=== PATIENT | female | born 1945 | race Caucasian/White ===

== ENCOUNTER 2019-08-25 14:07 | Outpatient (CLI) | payer MEDICARE, SELFPAY ==
--- NOTE | ~2019-08-25 | MM_ITS ---
EXAMINATION: MM screening [facility] BI w hilda HISTORY: Screening mammogram TECHNIQUE: Craniocaudal and mediolateral oblique 3-D tomosynthesis images were obtained and synthetic 2-D images were generated. CAD analysis was submitted and interpreted. COMPARISON: 06/04/2018, 05/27/2017, 04/08/2016 bilateral digital screening mammogram examinations BREAST PARENCHYMAL COMPOSITION: There are scattered areas of fibroglandular density. FINDINGS: Occasional benign calcifications. There is no evidence of suspicious mass, calcification, o r architectural distortion to suggest malignancy in either breast. There has been no suspicious inter lo change. IMPRESSION: 1. No mammographic evidence of malignancy. 2. Recommend routine screening mammography in one year. BI-RADS Category 2: Benign finding(s). Reviewed, dictated and finalized at location A.
== END 2019-08-25 14:08 | disposition home or self-care (01) ==
LOC: ANHIMG 14:12
PROVIDERS: PCP Family Medicine; Visit Provider Family Medicine
DX: Z12.31 Encounter for screening mammogram for malignant neoplasm of breast (principal)
CPT/HCPCS: 77063; 77067

== ENCOUNTER 2020-09-04 14:54 | Outpatient (CLI) | payer MEDICARE, SELFPAY ==
--- NOTE | ~2020-09-04 | MM_ITS ---
EXAMINATION: MM screening [facility] BI w hilda HISTORY: Screening mammogram TECHNIQUE: Craniocaudal and mediolateral oblique 3-D tomosynthesis images were obtained and synthetic 2-D images were generated. CAD analysis was submitted and interpreted. COMPARISON: 08/25/2019, 06/04/2018, 05/27/2017 BREAST PARENCHYMAL COMPOSITION: There are scattered areas of fibroglandular density. FINDINGS: There is no evidence of suspicious mass, calcification, or architectural distortion to sugg est malignancy in either breast. There has been no suspicious interval change. IMPRESSION: 1. No mammographic evidence of malignancy. 2. Recommend routine screening mammography in one year. BI-RADS Category 1: Negative Reviewed, dictated and finalized at location A.
== END 2020-09-04 14:55 | disposition home or self-care (01) ==
LOC: ANHIMG 14:58
PROVIDERS: PCP Family Medicine; Visit Provider Family Medicine
DX: Z12.31 Encounter for screening mammogram for malignant neoplasm of breast (principal)
CPT/HCPCS: 77063; 77067

== ENCOUNTER 2021-12-25 12:52 | Outpatient (CLI) | payer MEDICARE, SELFPAY ==
--- NOTE | ~2021-12-25 | DEXA_ITS ---
Bone Density Report Name: ASPEN RODRIGUEZ Age: 76 Sex: Female Ethnicity: White Date of : 1945 Indication: postmenopausal; screening for osteoporosis; height loss; hysterectomy; Referring Provider: KIMBERLEY EID Study: Bone densitometry was performed. Exam Date: December 25, 2021 Accession number: [id number] Bone Density: Region BMD T-score Z-score Classification AP Spine(L1, L2, L3) 1.085 0.6 2.9 Normal Femoral Neck (Left) 0.700 -1.3 0.7 Osteopenia Total Hip (Left) 0.794 -1.2 0.5 Osteopenia Femoral Neck (Right) 0.679 -1.5 0.5 Osteopenia Total Hip (Right) 0.817 -1.0 0.7 Normal Total Hip Mean 0.805 -1.1 0.6 Osteopenia World Health Organization criteria for BMD impression classify patients as: Normal (T-score at or above -1.0), Osteopenia (T-score between -1.0 and -2.5), or Osteoporosis (T-score at or below -2.5). 10-year Fracture Risk(1): Major Osteoporotic Fracture 11% Hip Fracture 2.1% Reported Risk Factors: [place] (), Neck BMD=0.679, BMI=23.5 (1) FRAX(R) Version 3.08. Fracture probability calculated for an untreated patient. Fracture probability may be lower if the patient has received treatment. Previous Exams: Region Exam Age BMD T-score BMD Change BMD Change Date g/cm2 vs Baseline vs Previous AP Spine (L1-L3) 12/25/2021 76 1.085 0.6 0.077 (7.6%)* 0.077 (7.6%)* 07/16/2016 70 1.009 -0.1 Total Hip(Left) 12/25/2021 76 0.794 -1.2 -0.056 (-6.6%) -0.056 (-6.6%) 07/16/2016 70 0.850 -0.8 Total Hip(Right) 12/25/2021 76 0.817 -1.0 -0.010 (-1.2%) -0.010 (-1.2%) 07/16/2016 70 0.827 -0.9 *Denotes significance at 95% confidence level, LSC for AP Spine = 0.022 g/cm2, LSC for Total Hip = 0.027 g/cm2 Clinical Information Provided by Patient: Has used the following medications: Vitamin D, Calcium Has the following medical conditions: Hysterectomy Patient maximum height was 65 Menopause Age: 57 Onset of menses at age 13 Number of children 2 Impression: The patient has low bone mass, based on the Right Femoral Neck T-score. The patient has an estimated ten-year risk of hip fracture of 2.1% and an estimated ten-year risk of major fracture of 11%, based on the WHO FRAX algorithm. The BMD for the Total Hip(Left) decreased, changing by -6.6% since the last DXA exam. Discussion: BONE DENSITY IS LOW AT ONE OR MORE SKELETAL SITES. This patient's lowest T-score is low at one or more skelet
== END 2021-12-25 12:53 | disposition home or self-care (01) ==
PROVIDERS: PCP Family Medicine; Visit Provider Family Medicine
DX: Z78.0 Asymptomatic menopausal state (principal); M85.852 Other specified disorders of bone density and structure, left thigh; M85.851 Other specified disorders of bone density and structure, right thigh
CPT/HCPCS: 77080

== ENCOUNTER 2022-10-30 15:29 | Outpatient (CLI) | payer MEDICARE, SELFPAY ==
--- NOTE | ~2022-10-30 | MM_ITS ---
EXAMINATION: MM screening [facility] BI w hilda HISTORY: Screening mammogram TECHNIQUE: Craniocaudal and mediolateral oblique 3-D tomosynthesis images were obtained and synthetic 2-D images were generated. CAD analysis was submitted and interpreted. COMPARISON: 09/04/2020, 08/25/2019, 06/04/2018 BREAST PARENCHYMAL COMPOSITION: There are scattered areas of fibroglandular density. FINDINGS: No suspicious mass, calcification, or architectural distortion are identified in either joanne ast to suggest malignancy. There has been no suspicious interval change. IMPRESSION: 1. No mammographic evidence of malignancy. 2. Recommend routine screening mammography in one year. BI-RADS Category 1: Negative Reviewed, dictated and finalized at location A.
== END 2022-10-30 15:30 | disposition home or self-care (01) ==
LOC: ANHIMG 15:44
PROVIDERS: PCP Family Medicine; Visit Provider Family Medicine
DX: Z12.31 Encounter for screening mammogram for malignant neoplasm of breast (principal)
CPT/HCPCS: 77063; 77067

== ENCOUNTER 2024-02-04 13:55 | Outpatient (CLI) | payer MEDICARE, SELFPAY ==
--- NOTE | ~2024-02-04 | US_ITS ---
EXAMINATION: US soft tissue head and neck DATE: 02/04/2024 14:47 INDICATION: Localized swelling, mass and lump, neck. TECHNIQUE: Multiple grayscale and Doppler ultrasound images of the neck were obtained. COMPARISON: None FINDINGS: In the right neck, there is a 3.1 x 4.6 x 3.4 cm internal jugular ingris mass. IMPRESSION: 1. Right internal jugular lymphadenopathy, consistent with metastatic disease versus lymphoma. Ultras ound-guided core needle biopsy is recommended. Reviewed, dictated and finalized at location A. AGENT IMPRESSION: 1. Right internal jugular lymphadenopathy, consistent with metastatic disease v ersus lymphoma. Ultrasound-guided core needle biopsy is recommended.
== END 2024-02-04 13:56 | disposition home or self-care (01) ==
PROVIDERS: PCP Family Medicine; Visit Provider Physician Assistant
DX: R22.1 Localized swelling, mass and lump, neck (principal)
CPT/HCPCS: 76536

== ENCOUNTER 2024-02-17 09:52 | Outpatient (CLI) | payer MEDICARE, SELFPAY ==
--- NOTE | 2024-02-11 16:15 | PC.NURSE ---
Pre Radiology instructions Report to the outpatient mariajose bowen on date __02/17/24___ at time __10:00am for procedure Time: _10:30am___ YOU MAY BE MONITORED AT HOSPITAL FOR UP TO 4 HOURS AFTER YOUR PROCEDURE. A visitor will be allowed to accompany the patient into the hospital. You and your visitor will be asked to self-screen and do not enter if you have any COVID symptoms. A mask is OPTIONAL within the hospital. Patients are to have no food or drink 6 hours prior to procedure time Driving will be restricted after the procedure, you must have a person to drive you home. Labs will be drawn in preop area and once reviewed, you will be taken to radiology area for procedure. When the procedure is completed, you will be taken to outpatient where you will be monitored for several hours. You may have one visitor in this area. Other than holding anti-coagulants, patient may take other medication(s) as scheduled. Prior to your appointment date patients are instructed to hold anti-coagulants after discussing with ordering provider to stop. If unable to discontinue anti-coagulants please notify radiologist. ? No aspirin or warfarin (Coumadin) for 7 days prior to the procedure. ? No clopidogrel (Plavix), ticagrelor (Brilinta), prasugrel (Effient) or dabigatran (Pradaxa) for 5 days prior to the procedure. ? No rivaroxaban (Xarelto), apixaban (Eliquis), dipyridamole (Aggrenox or Persantine) or cilostazol (Pletal) for 2 days prior to the procedure. Medications to discontinue per physician: ___hold aspirin 7 days pre-op Date to take last dose: 02/09/24 Please leave all valuables, including medications, at home the day of procedure. The hospital will not accept responsibility for valuables. Wear comfortable, loose fitting clothing.? Follow any additional instructions given to you from ordering provider. Telephone instructions given to ____patient and asked if any additional questions and then verbalized understanding. Patient advised to call scheduling provider office or registration scheduling [phone] if any additional questions.
[2024-02-11 16:17] VITALS: BMI 23.1
--- NOTE | ~2024-02-17 | US_ITS ---
EXAMINATION: US biopsy lymph node DATE: 02/17/2024 11:30 INDICATION: Right internal jugular lymphadenopathy TECHNIQUE: The procedure including the risks and benefits was discussed with the patient. Risks discu ssed included bleeding and infection. The patient understood the risks and agreed to proceed. The sk in overlying the previously noted enlarged inferior left jugular chain lymph node was prepped and chely ped in usual sterile fashion. Anesthetic was administered with 1% lidocaine subcutaneously. An 18 g auge core biopsy needle was advanced under continuous ultrasound observation to the lesion of interes t. 8 core biopsy specimens were obtained, 5 placed in RPMI media and 3 formalin. The needle was rem sam and the entry site was cleaned and dressed. Post procedure ultrasound demonstrated no hemorrhag e. FINDINGS: Ultrasound images demonstrate a 4.1 x 3.1 x 3.1 cm lobular mass, likely an enlarged lymph n ode along the right jugular chain. Subsequent images demonstrate the biopsy needles advanced into the mass.. IMPRESSION: 1. Successful Ultrasound-guided biopsy of a 4.1 x 3.1 x 3.1 cm large right internal jugular chain lym ph node suspicious for metastatic disease or lymphoma. Reviewed, dictated and finalized at location A. TS COORDINATOR IMPRESSION: 1. Successful Ultrasound-guided biopsy of a 4.1 x 3.1 x 3.1 cm large right inte rnal jugular chain lymph node suspicious for metastatic disease or lymphoma.
== END 2024-02-17 09:53 | disposition home or self-care (01) ==
LOC: ANHIMG 09:56
PROVIDERS: PCP Family Medicine; Visit Provider Physician Assistant
DX: R93.89 Abnormal findings on diagnostic imaging of other specified body structures (principal)
CPT/HCPCS: 38505; 76942; 88184; 88305; 88342

== ENCOUNTER 2025-01-07 14:06 | Outpatient (CLI) | payer MEDICARE, SELFPAY ==
--- NOTE | ~2025-01-07 | DEXA_ITS ---
Bone Density Report Name: ASPEN RODRIGUEZ Age: 79 Sex: Female Ethnicity: White Date of : 1945 Indication: osteopenia; monitoring treatment; parental hip fracture; cancer; hysterectomy; Referring Provider: ALLIE ROSE Study: Bone densitometry was performed. Exam Date: January 07, 2025 Accession number: [id number] Bone Density: Region BMD T-score Z-score Classification AP Spine(L2, L3, L4) 1.267 1.7 4.3 Normal Femoral Neck (Left) 0.657 -1.7 0.4 Osteopenia Total Hip (Left) 0.822 -1.0 0.9 Normal Femoral Neck (Right) 0.655 -1.7 0.4 Osteopenia Total Hip (Right) 0.915 -0.2 1.7 Normal Total Hip Mean 0.869 -0.6 1.3 Normal World Health Organization criteria for BMD impression classify patients as: Normal (T-score at or above -1.0), Osteopenia (T-score between -1.0 and -2.5), or Osteoporosis (T-score at or below -2.5). 10-year Fracture Risk: FRAX not reported because: Treated for osteoporosis Previous Exams: Region Exam Age BMD T-score BMD Change BMD Change Date g/cm2 vs Baseline vs Previous Total Hip(Left) 01/07/2025 79 0.822 -1.0 -0.028 (-3.2%) 0.029 (3.6%)* 12/25/2021 76 0.794 -1.2 -0.056 (-6.6%) -0.056 (-6.6%) 07/16/2016 70 0.850 -0.8 Total Hip(Right) 01/07/2025 79 0.915 -0.2 0.088 (10.7%)* 0.098 (12.1%)* 12/25/2021 76 0.817 -1.0 -0.010 (-1.2%) -0.010 (-1.2%) 07/16/2016 70 0.827 -0.9 *Denotes significance at 95% confidence level, LSC for Total Hip = 0.027 g/cm2 Clinical Information Provided by Patient: Parent has had a hip fracture Is being treated for osteoporosis Has used the following medications: Vitamin D, Calcium Has the following medical conditions: Cancer, Hysterectomy Patient maximum height was 65 Menopause Age: 57 Drinks caffeinated beverages Onset of menses at age 13 Number of children 2 Missed period for more than 6 months in a row Impression: The patient has low bone mass, based on the Left Femoral Neck T-score. The patient has risk factors, including: parental hip fracture. No significant bone loss was observed. Discussion: PATIENT UNDER TREATMENT WITH NO SIGNIFICANT BMD LOSS SINCE LAST EXAM. In an untreated patient, BMD typically declines with age. A lack of decline or gain is usually a sign that treatment is efficacious and fracture risk is reduced. It is important to ask patients whether they are taking their medications and to encourage continued and appropriate compliance with their osteoporosis therapies to reduce fracture risk. It is also important to review their risk factors and encourage appropriate calcium and vitamin D intakes, exercise, fall prevention and other lifestyle measures. Follow-Up: Consider a repeat BMD and Vertebral Fracture Assessment (VFA) exam in 2 years or sooner if medically necessary, to reassess this patient's status. Reported by: JARED on 01/07/2025 2:53:00 PM. Reviewed, dictated and finalized at location A.
--- OUTSIDE RECORDS SUMMARY | 2025-01-07 14:10 | XMS_ITS | Encounter Summary ---
Author Organization [facility] Address [address] [place] [address] Phone Care Team Providers Care Crutching Contractor Name Role Phone Foster Callahan Unavailable [phone] OppeAnders ruano MD Unavailable [phone] Kevin Willams MD Primary Care Provider Encounter Details Date Type Department Care Team (Late st Contact Info) Description 12/27/2024 Results Follow-Up [facility] Medicine Endocrinology Metabolism and Lipid [address] [facility] [address], [address] [place] [address] Oseas Kitchen MD [address] [address] Head Neck Soft Tissue Social History Tobacco Use Types Packs/Day Years Used Date Smoking Tobacco: Never Smokeless Tobacco: Never AUDIT-C Answer Date Recorded Q1: How often do you have a drink containing alcohol? Never 05/28/2024 Q2: How many drinks containi ng alcohol do you have on a typical day when you are drinking? Patient does not drink Q3: How often do you have si x or more drinks on one occasion? Never 05/28/2024 Personal Safety Answer Date Recorded Have you ever been in or are you currently in a harmful physical or emotional relationship or is someone making you feel afraid or unsafe? 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 Gender Identity Not on file Sexual Orientation Not on file documented as of this encounter Plan of Treatment Not on file documented as of this encounter Visit Diagnoses Not on filedocumented in this encounter Care Teams Crutching Contractor Relationship Specialty Start Date End Date Kevin Willams MD [address] [place] [address] [place] [address] PCP - General Family Medicine 05/18/24 Foster Callahan PA [address] [place] [address] [place] [address] Physician Production Operations Manager 02/25/24 Anders Ball MD [address] [facility] [address] [place] [address] Medical Oncologist/Building Admin Medical Oncology 02/25/24 documented as of this encounter
--- OUTSIDE RECORDS SUMMARY | 2025-01-07 14:10 | XMS_ITS ---
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 TSH goal suppression Assessment & Plan (11/09/2024 1:02 PM CDT): Continue current levothyroxine dose. Will check thyroid function test and adjust levothyroxine dose accordingly. 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 I will request sampling of the largest lymph node with TG washout. I will also repeat biochemical evaluation when she is here for the biopsy. I will discuss with the nuclear Medicine and Dr. Fan regarding best next step regarding repeat radioactive iodine dose versus neck dissection pending biopsy results. Surveillance remain an option to patient. 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 Patient currently on levothyroxine 100 mcg daily. TSH goal is suppression. We will obtain biochemical testing to check thyroid function tests then tumor markers. She is scheduled for neck ultrasound in December this year followed by follow-up with Dr. Fan later this year. I will plan to see her and coordinate around that time. Assessment & Plan (05/05/2024 11:06 AM WHEEL FITTER): Reviewed pathology and images reports with patient and delineated upcoming plan which involves surgery , followed by TRACY , lifelong thyroid hormone replacement and short/terminal system operator follow up plans - all questions addressed - Patient have surgery scheduled early May with Dr. Fan - based on ingris involvement, she will need TRACY and TBS scheduled after surgery [ can keep levothyroxine on hold if TRACY schedule late May, else advised to start levothyroxine after surgery pending scheduling with [facility]] - Reviewed surgery complication may include hypoCa, advised to continue Vit D intake - Reviewed life long THR and dose adjustment, and potential TSH goals - Reviewed imaging modality and follow up intervals - Patient questions all addressed Current Treatment and Therapy Plans No current plan information found. Past Treatment and Therapy Plans No past plan information found. Lifetime Dose Tracking * Chemical Lifetime Dose Automatic Entry Manual Entr y DLP 346 mGycm 346 mGycm 0 mGycm
--- OUTSIDE RECORDS SUMMARY | 2025-01-07 14:10 | XMS_ITS | Clinical Summary ---
Author Organization [facility] Address [address] [place] [address] Care Team Providers Care Gm/Svp Global Publisher Business Name Role Phone Unavailable Primary Care Provider Unavailabl e Source Comments [facility],non-owned Affiliates and Associated Physician Practices is amultiple site organization consisting of ambulatory clinics and hospital sitesin [place], [place], [place] and [place]. This disclosure is being madepursuant to the Care Everywhere program and may not contain all information available regarding this patient. 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 Gender Identity Not on file Sexual Orientation Not on file Plan of Treatment Health Maintenance Due Date Last Done Comments BONE DENSITY TESTING 1945 COVID-19 VACCINE (#1) 11/04/1952 HEPATITIS C SCREENING 10/31/1965 DTAP/TDAP/TD VACCINES (1 - Tdap) 11/04/1966 PNEUMOCOCCAL VACCINE 50+ (1 of 2 - PCV) 11/04/1966 ZOSTER VACCINE (1 of 2) 11/04/1966 Respiratory Syncytial Virus (RSV) Vaccine Pt: or over 60 yrs (1 - 1-dose 75+ series) 11/04/2022 DEPRESSION SCREENING 03/24/2024 MEDICARE AWV CALENDAR YEAR 2024 INFLUENZA VACCINE (#1) 2024 HEPATITIS B VACCINE Aged Out No longe r eligible based on patient's age to complete this topic HIB VACCINE Aged Out No longer eligi ble based on patient's age to complete this topic HPV VACCINE Aged Out No longer eligi ble based on patient's age to complete this topic MENINGOCOCCAL (Group B) VACC INE SHARED DECISION-MAKING Aged Out No longer eligibl e based on patient's age to complete this topic MENINGOCOCCAL GROUPS A/C/Y/W VACCINE Aged Out No longer eligible b ased on patient's age to complete this topic Insurance [employer] MEDICARE ADV SELF PAY NO INSURANCE Member Subscriber Plan / Payer (Ef fective for All Dates) Name:Aspen Dumont Member ID:Not on file Relation to Subscriber:Not on file Name:ASPEN DUMONT Subscriber ID:Not on file (Home) Address: [address] [place] [address] Payer ID:Not on file Group ID:Not on file Type:Self Pay Address: [place], [place]
--- OUTSIDE RECORDS SUMMARY | 2025-01-07 14:10 | XMS_ITS | Clinical Summary ---
Author Organization [facility] Address [address] [place] [address] Care Team Providers Care Finance Specialist Name Role Phone Unavailable Primary Care Provider Unavailabl e Social History Tobacco Use Types Packs/Day Years Used Date Smoking Tobacco: Never Assessed Comments Unknown Sex and Gender Information Value Date Recorded Sex Assigned at Not on file Legal Sex Female 7:55 PM CDT Gender Identity Not on file Sexual Orientation Not on file Plan of Treatment Health Maintenance Due Date Last Done Comments Hepatitis C 11/04/1965 DTaP, Tdap and Td Vaccines ( 1 - Tdap) 11/04/1966 Pneumococcal Vaccine: 50+ Ye ars (1 of 1 - PCV) 11/04/1997 Zoster Vaccines (1 of 2) 11/04/1997 Dexa Scan (General) 11/04/2012 RSV Immunization or 60+ Years (1 - 1-dose 75+ series) 11/04/2022 COVID-19 Vaccine (2023-2 5 season) 2024 Influenza Adult (#1) 2024 Meningococcal B Vaccine Aged Out No l onger eligible based on patient's age to complete this topic Meningococcal Vaccine Aged Out No bailey sheridan eligible based on patient's age to complete this topic RSV Immunizations Under 20 Months Aged Out No longer eligible based on patient's age to complete this topic
--- OUTSIDE RECORDS SUMMARY | 2025-01-07 14:10 | XMS_ITS | Encounter Summary ---
Author Organization [facility] Address [address] [facility] [place] [address] Care Team Providers Care Director Ambulatory Name Role Phone Unavailable Primary Care Provider Unavailabl e Encounter Details Date Type Department Care Team (Late st Contact Info) Description 02/17/2024 Lab Requisition [facility] - Pathology Lab [address] [place] [address] Andreas Rosado MD [address] [place] [address] Enlarged lymph nodes, unspecified Social History Tobacco Use Types Packs/Day Years Used Date Smoking Tobacco: Never Assessed Comments Unknown Sex and Gender Information Value Date Recorded Sex Assigned at Not on file Legal Sex Female 5:45 PM FILM OR VIDEOTAPE EDITOR Gender Identity Not on file Sexual Orientation Not on file documented as of this encounter Plan of Treatment Not on file documented as of this encounter Procedures Procedure Name Priority Date/Time Associated Diagnosis Comments FLOW CYTOMETRY TISSUE PANEL Routine 02/17/2024 10:55 AM FILM OR VIDEOTAPE EDITOR Enlarged lymph nodes, unspecified documented in this encounter Results * FLOW CYTOMETRY TISSUE PANEL (02/17/2024 10:55 AM FILM OR VIDEOTAPE EDITOR) Case Report Flow Cytometry Case: [id number] Authorizing Provider: Andreas Rosado Collected: 02/17/2024 10:55 AM MD Kishore Ordering Location: [facility] - Received: 02/17/2024 04:47 PM Pathology Lab Pathologist: Edd Bob MD Specimen: Lymph Node, Neck 02/18/2024 8:52 AM FILM OR VIDEOTAPE EDITOR [facility] Final Diagnosis Lymph node, neck, flow cytometry: - Too few hematopoietic cells for flow cytometry 02/18/2024 8:52 AM FILM OR VIDEOTAPE EDITOR [facility] at [address] [facility] Flow Cytometry Interpretation A cytospin prepared from the flow cytometry specimen has been reviewed for water quality analyst purposes. It shows malignant epithelial cells. 02/18/2024 8:52 AM [facility] Flow Cytometry Results Too few hematopoietic cells for flow cytometric analysis. 02/18/2024 8:52 AM [facility] Reason for test Enlarged lymph nodes, unspecified 02/18/2024 8:52 AM [facility] Client Specimen ID # [id number] 02/18/2024 8:52 AM [facility] Pathologist Location at [facility] 02/18/2024 8:52 AM [facility] Disclaimer Test performed at [facility], [address] [place] [address], [address]. *The established laboratory minimum viability is 70%. Values below the minimum may result in the failure to find an abnormal population of cells. This test was developed and its performance characteristics determined by the Flow Cytometry Laboratory. It has not been cleared by the [place] Food and Drug Administration (FDA). The FDA has determined that such clearance or approval is not necessary. This test is used for clinical purposes. It should not be regarded as investigational or for research. This laboratory is regulated under the Clinical Laboratory Improvement Amendments of 1998 (CLIA) as a qualified to perform high complexity clinical testing. 02/18/2024 8:52 AM [facility] Embedded Images 8:52 AM [facility] Pathology/Cytolo gy ENTIRE LYMPH NODE / Unknown 02/17/2024 10:55 AM FILM OR VIDEOTAPE EDITOR 02/17/2024 4:47 PM FILM OR VIDEOTAPE EDITOR Andreas Rosado MD LAB - PATHOLOGY/CYT OLOGY ORDERABLES Final Result [facility] [address] [place] [address]. [place] [address], [facility] [phone] documented in this encounter Visit Diagnoses Diagnosis Enlarged lymph nodes, unspecified documented in this encounter
--- OUTSIDE RECORDS SUMMARY | 2025-01-07 14:10 | XMS_ITS | Clinical Summary ---
Author Organization [address] Address [address] [place] [address] Care Team Providers Care Electric Hoist Operator Name Role Phone Foster Callahan Unavailable [phone] OppeAnders ruano MD Unavailable [phone] Kevin Willams MD Primary Care Provider Allergies Active Allergy Reactions Criticality Noted Date Comments Atorvastatin Other (See comments) 02/11/2024 Medications colesevelam (WELCHOL) 625 mg tabletIndications :hyperlipidemia Take 3 tablets (1,875 mg total) by mouth 2 (two) times a day 02/13/20 24 Active diclofenac (CATAFLAM) 50 mg tabletIndications :arthritis Take 1 tablet (50 mg total) by mouth 2 (two) times a day 02/13/20 24 Active epinastine 0.05 % ophthalmic solutionIndicatio ns:Allergic Conjunctivitis Administer 1 drop into both eyes radiographer angiogram before breakfast 02/16/20 24 Active Terese-D 24 Hour 180-240 mg per 24 hr tabletIndications :Allergic Rhinitis Take 1 tablet by mouth radiographer angiogram before breakfast 01/07/20 24 Active lisinopriL (PRINIVIL,ZESTRIL ) 10 mg tabletIndications :hypertension Take 1 tablet (10 mg total) by mouth radiographer angiogram before breakfast 03/02/20 24 Active rOPINIRole (REQUIP) 0.25 mg tabletIndications :Restless Legs Syndrome Take 1 tablet (0.25 mg total) by mouth 3 (three) times a day 02/17/20 24 Active rOPINIRole (REQUIP) 1 mg tabletIndications :Restless Legs Syndrome Take 1 tablet (1 mg total) by mouth nightly 01/01/20 24 Active traMADoL (ULTRAM) 50 mg tablet Take 1 tablet (50 mg total) by mouth every 8 (eight) hours as needed for other (RLS) 03/01/20 24 Active ursodioL (ACTIGALL) 300 mg capsuleIndication s:liver Take 1 capsule (300 mg total) by mouth 2 (two) times a day 02/29/20 24 Active aspirin 81 mg enteric coated tabletIndications :heart health Take 1 tablet (81 mg total) by mouth nightly Active multivitamin tabletIndications :Vitamin Deficiency Prevention Take 1 tablet by mouth radiographer angiogram before breakfast Active oxyCODONE (ROXICODONE) 5 mg immediate release tabletIndications :Pain Take 1 tablet (5 mg total) by mouth every 4 (four) hours as needed for pain 20 tablet 05/30/19 25 Active levothyroxine (SYNTHROID) 100 mcg tablet Take 1 tablet (100 mcg total) by mouth radiographer angiogram before breakfast Active calcitRIOL (ROCALTROL) 0.25 mcg capsuleIndication s:hypocalcemia,hy poparathyroidism Take 1 capsule (0.25 mcg total) by mouth 2 (two) times a day for 12 doses 12 capsule 05/30/19 25 2024 Discontinued calcium citrate (CALCITRATE) 950 mg (200 mg of elemental calcium) tabletIndications :Hypocalcemia Prevention,hypoca lcemia Take 2 tablets (1,900 mg total) by mouth every 8 (eight) hours for 7 days, THEN 2 tablets (1,900 mg total) every 12 (twelve) hours for 7 days, THEN 2 tablets (1,900 mg total) daily for 7 days. 84 tablet 05/30/19 25 2024 Discontinued Active Problems Problem Noted Date Diagnosed Date [...] time. Assessment & Plan (05/05/2024 11:06 AM MANAGER MEDICARE): Reviewed pathology and images reports with patient and delineated upcoming plan which involves surgery , followed by [facility] , lifelong thyroid hormone replacement and short/chcf follow up plans - all questions addressed [...] up intervals - Patient questions all addressed Encounters Date Type Department Care Team Description 12/29/2024 Telephone [facility] Endocrinology Metabolism and Lipid [address] [facility] 13th [place] [address] [place] [address] Samira Marie RN 12/28/2024 Telephone [facility] Radiology [address] [place] [address] Helen Forte RN 12/27/2024 3:20 PM CDT Office Visit [facility] Endocrinology Metabolism and Lipid [address] [facility] Floor 1, [address] [place] [address] Oseas Kitchen MD Post-surgical hypothyroidism (Primary Dx); Papillary carcinoma of thyroid (HCC); Local recurrence of cancer of thyroid gland (HCC) 12/27/2024 10:32 AM CDT - 12/27/2024 11:59 PM CDT Hospital Encounter [facility] Radiology [facility] [address] [place] [address] Papillary carcinoma of thyroid (HCC) Discharge Disposition: Discharge to home or self care 12/27/2024 Telephone [facility] Radiology 1 [place] [address] Helen Forte RN 12/27/2024 Results Follow-Up [facility] Endocrinology Metabolism and Lipid [address] [facility] Floor 1, [address] [place] [address] Oseas Kitchen MD Head Neck Soft Tissue 11/28/2024 Results Follow-Up [facility] Endocrinology Metabolism and Lipid [address] [facility] Floor 1, [address] [place] [address] Oseas Kitchen MD Thyroid Cancer (Thyroglobulin) Monitor, TSH, T4, free, Additional followed-up results: 2 11/09/2024 1:00 PM CDT Telemedicine [facility] Medicine Endocrinology Metabolism and Lipid [address] [facility] Floor 1, [address] [place] [address] Oseas Kitchen MD Papillary carcinoma of thyroid (HCC) (Primary Dx); Post-surgical hypothyroidism 11/09/2024 Telephone [facility] Endocrinology Metabolism and Lipid [address] [place] [address] Advanced [facility] 13th [place] [address] [place] [address] Samira Marie RN from Last 3 Months Immunizations Immunization Administration Dates Next Due DTaP 07/03/2009 Influenza, Quad, Adjuvantate d, Intramuscular 12/25/2022 Influenza, Quadrivalent, Hig h Dose, Preservative Free, Intrr 01/03/2022,12/27/2020,12/22/2019 Influenza, Trivalent, Adjuva nted, Intramuscular 12/22/2018,12/21/2017 Influenza, Trivalent, High D ose, Split, Preservative Free, Intramuscular 12/23/2023,12/16/2016,12/29/2015 Influenza, Trivalent, IM (MDV) 12/30/2014,2012 Pneumococcal Conjugate PCV 13 12/16/2016 Pneumococcal Polysaccharide PPV23 07/05/2013 Varicella Zoster Immune Globulin 03/24/2006 ZOSTER Recombinant 01/15/2023,10/15/2022 Surgical History Surgery Date Site/Laterality Comments HYSTERECTOMY 03/24/2018 - 03/23/2019 COLONOSCOPY Medical History Medical History Date Comments Hypercholesteremia Hypertension Liver disease 2004 Cancer (HCC) 2023 Motion sickness Family History Medical History Relation Name Comments Lymphoma Mother Anesthesia problems Neg Hx Relation Name Status Comments Mother Social History Tobacco Use Types Packs/Day Years Used Date Smoking Tobacco: Never Smokeless Tobacco: Never Tobacco Cessation:Counseling Given: Not Answered AUDIT-C Answer Date Recorded Q1: How often [...] on file Legal Sex Female 12:18 AM MANAGER MEDICARE Gender Identity Not on file Sexual Orientation Not on file Obstetrics History Last Filed Vital Signs Vital Sign Reading Time Taken Comments Blood Pressure 147/75 12/27/2024 1:17 PM CDT Pulse 54 12/27/2024 1:17 PM CDT Temperature 36.4 C (97.5 F) 12/27/2024 1:17 PM CDT Respiratory Rate 17 12/27/2024 1:17 PM CDT Oxygen Saturation 98% 12/27/2024 1:17 PM CDT Inhaled Oxygen Concentration - - Weight 62.1 kg (137 lb) 12/27/2024 1:17 PM CDT Height 160 cm (5' 2.99) 12/27/2024 1:17 PM CDT Body Mass Index 24.27 12/27/2024 1:17 PM CDT Plan of Treatment Health Maintenance Due Date Last Done Comments Depression Screening 1945 Hepatitis C Screening 1945 Osteoporosis Screening-Bone Density Scan 1945 Hepatitis B Screening 11/04/1965 Well Visit 65+ 11/04/2012 DTaP/Tdap/Td Vaccine (2 - Tdap) 07/04/2019 0 Covid-19 Vaccine (8 - Pfizer risk season) 2024 12/23/2023, 12/25/2022, 01/03/2022, Additional history exists Influenza Vaccine (#1) 2024 , 12/25/2022, 01/03/2022, Additional history exists Fall Risk Assessment 05/29/2025 05/29/2024 Pneumococcal vaccine 65+ Completed 12/16/2016, 06/22 Zoster Vaccine Completed 01/15/2023, 10/15/2022 Procedures Procedure Name Priority Date/Time Associated Diagnosis Comments US SOFT TISSUE HEAD NECK Schedule Routine, Read Routine (OP Routine) 12/27/2024 11:48 AM CDT Papillary carcinoma of thyroid (HCC) THYROGLOBULIN Routine 11/23/2024 9:09 AM CDT THYROGLOBULIN ANTIBODIES Routine 11/23/2024 9:09 AM CDT Papillary carcinoma of thyroid (HCC) Post-surgical hypothyroidism T4, FREE Routine 11/23/2024 9:09 AM CDT Papillary carcinoma of thyroid (HCC) Post-surgical hypothyroidism TSH Routine 11/23/2024 9:09 AM CDT Papillary carcinoma of thyroid (HCC) Post-surgical hypothyroidism THYROID CAN MONITOR Routine 11/23/2024 9 :09 AM CDT Papillary carcinoma of thyroid (HCC) Post-surgical hypothyroidism from Last 3 Months Results * US Head Neck Soft Tissue (12/27/2024 11:48 AM CDT) Anatomical Region Laterality Modality Head and Neck N/A Ultrasound 12/27/2024 12:0 7 PM CDT Impressions 12/27/2024 12:08 PM CDT Abnormal morphology of several left level 4 lymph nodes suspicious for metastatic disease. Recommend further evaluation with tissue sampling. Dictated by: Elen Nichols M.D. The radiology attending physician has personally reviewed this study, and had reviewed and/or edited this written report and agrees with it. Electronically signed by: Jeffery Cruz M.D. Narrative 12/27/2024 12:08 PM CDT EXAMINATION: POST THYROIDECTOMY SONOGRAM HISTORY: History of papillary thyroid cancer status post thyroidectomy May 2024. Most recent thyroglobulin level 11/23/2024 of 8.9. COMPARISON: CT soft tissue neck dated 04/01/2024 as well as ultrasound of the neck dated 04/01/2024. FINDINGS: There is an abnormal chain of four left-sided level 4 lymph nodes best seen on cine clip labeled image number 34. Each of these lymph nodes demonstrate abnormal morphology with small cystic changes. The largest of which measures 1.4 cm x 0.8 cm x 0.8 cm with normal hilar vascular flow. No abnormal lymph nodes are visualized in the right neck. No additional soft tissue masses identified. Procedure Note Jeffery Cruz MD - 12/27/2024 EXAMINATION: POST THYROIDECTOMY SONOGRAM HISTORY: History of papillary thyroid cancer status post thyroidectomy May 2024. Most recent thyroglobulin level 11/23/2024 of 8.9. COMPARISON: CT soft tissue neck dated 04/01/2024 as well as ultrasound of the neck dated 04/01/2024. FINDINGS: There is an abnormal chain of four left-sided level 4 lymph nodes best seen on cine clip labeled image number 34. Each of these lymph nodes demonstrate abnormal morphology with small cystic changes. The largest of which measures 1.4 cm x 0.8 cm x 0.8 cm with normal hilar vascular flow. No abnormal lymph nodes are visualized in the right neck. No additional soft tissue masses identified. IMPRESSION: Abnormal morphology of several left level 4 lymph nodes suspicious for metastatic disease. Recommend further evaluation with tissue sampling. Dictated by: Elen Nichols M.D. The radiology attending physician has personally reviewed this study, and had reviewed and/or edited this written report and agrees with it. Electronically signed by: Jeffery Cruz M.D. Oseas Kitchen MD IMG US PROCEDURES Final Result * (ABNORMAL) THYROGLOBULIN (11/23/2024 9:09 AM CDT) Thyroglobulin 8.9(H) ng/mL [facility], Comment: Reference Range: Athyrotic: <0.1 Reference range applies to differentiated thyroid cancer patients following treatment. The presence of measurable thyroglobulin indicates the presence of thyroglobulin-producing thyroid tissue. Clinical correlation is advised. This Thyroglobulin test was performed using the Jovon Foster Chemiluminescent method. Values obtained from different assay methods cannot be used interchangeably. Thyroglobulin levels, regardless of value, should not be interpreted as absolute evidence of the presence or absence of disease. 11/23/2024 9:09 AM CDT 11/23/2024 9:09 AM CDT Oseas Kitchen MD LAB BLOOD ORDERABLES Final Resu lt [facility], [address] [place] [address] * Thyroglobulin antibodies (11/23/2024 9:09 AM CDT) Thyroglobulin ab <1 < or = 1 IU/mL [facility] Blood 11/23/2024 9:09 AM CDT 11/23/2024 9:09 AM CDT Oseas Kitchen MD LAB BLOOD ORDERABLES Final Resu lt Performing Organization Address City/[facility] Co de Phone Number [facility]aurisio [facility] [address] [place] [address] * Thyroid Cancer (Thyroglobulin) Monitor (11/23/2024 9:09 AM CDT) Thyroglobulin ab 1 < OR = 1 IU/mL [facility], Comment: This Thyroglobulin antibody test was performed using the Jovon Foster Chemiluminescent method. Values obtained from different assay methods cannot be used interchangeably. Thyroglobulin antibody levels, regardless of value, should not be interpreted as absolute evidence of the presence or absence of disease. Serum 11/23/2024 9:09 AM CDT 11/23/2024 9:09 AM CDT Oseas Kitchen MD LAB BLOOD ORDERABLES Final Resu lt Performing Organization Address [facility] Co de Phone Number [facility], [address] [place] [address] * (ABNORMAL) TSH (11/23/2024 9:09 AM CDT) TSH 0.38(L) 0.40 - 4.50 mIU/L [facility] [facility] Blood 11/23/2024 9:09 AM CDT 11/23/2024 9:09 AM CDT Oseas Kitchen MD LAB BLOOD ORDERABLES Final Resu lt Performing Organization Address City/[facility]/ZIP Co de Phone Number [facility] [address] [place] [address] * T4, free (11/23/2024 9:09 AM CDT) Free T4 1.5 0.8 - 1.8 ng/dL [facility] Blood 11/23/2024 9:09 AM CDT 11/23/2024 9:09 AM CDT Oseas Kitchen MD LAB BLOOD ORDERABLES Final Resu lt [facility] [address] [place] [phone] from Last 3 Months Insurance [facility] MEDICARE [facility] MEDICARE Advance Directives For more information, please contact: [phone] * Full Code (Latest Code Status on File) Date Activated Date Inactivated Comments 05/28/2024 8:52 PM 05/29/2024 7:52 PM Care Teams Electric Hoist Operator Relationship Specialty Start Date End Date Kevin Willams MD [address] [place] [address] [place] [address] PCP - General Family Medicine 05/18/24 Foster Callahan PA [address] [place] [address] [place] [address] Physician Rubber Stamp Die Inspector 02/25/24 Anders Ball MD [address] [facility] [address] [place] [address] Medical Oncologist/Road Monkey Medical Oncology 02/25/24
--- OUTSIDE RECORDS SUMMARY | 2025-01-07 14:10 | XMS_ITS | Encounter Summary ---
Author Organization [facility] Address [address] [place] [address] Phone Care Team Providers Care Vegetable Sorter Name Role Phone Foster Callahan Unavailable [phone] OppeAnders ruano MD Unavailable [phone] Kevin Willams MD Primary Care Provider Encounter Details Date Type Department Care Team (Late st Contact Info) Description 11/28/2024 Results Follow-Up [facility] Medicine Endocrinology Metabolism and Lipid [address] [facility] Floor 1, [address] [place] [address] Oseas Kitchen MD [address] [facility] [place] [address] [place] [address] Thyroid Cancer (Thyroglobulin) Monitor, TSH, T4, free, Additional followed-up results: 2 Social History Tobacco Use Types Packs/Day Years [...] on file Legal Sex Female 12:18 AM ASSEMBLY REPAIRER Gender Identity Not on file Sexual Orientation Not on file documented as of this encounter Plan of Treatment Not on file documented as of this encounter Visit Diagnoses Not on filedocumented in this encounter Care Teams Vegetable Sorter Relationship Specialty Start Date End Date Kevin Willams MD [address] [place] [address] [place] [address] PCP - General Family Medicine 05/18/24 Foster Callahan PA [address] [place] [address] [place] [address] Physician District Plant Supervisor 02/25/24 Anders Ball MD [address] [facility] [address] [place] [address] Medical Oncologist/Blast Setter Medical Oncology 02/25/24 documented as of this encounter
== END 2025-01-07 14:07 | disposition home or self-care (01) ==
LOC: ANHFOHIMG 14:07
PROVIDERS: PCP Family Medicine; Visit Provider Physician Assistant Medical
DX: M85.852 Other specified disorders of bone density and structure, left thigh (principal); M85.851 Other specified disorders of bone density and structure, right thigh; Z78.0 Asymptomatic menopausal state
CPT/HCPCS: 77080